=== PATIENT | male | born 1970 | race Caucasian/White ===

== ENCOUNTER 2017-11-15 12:14 | Emergency (ER) | payer BC ==
[~2017-11-15] VITALS: Ht 177.8 cm; Wt 72.7 kg
[~2017-11-15 12:14] MED LIST: FAMO-128 PO; HYDR-569 PO
[2017-11-15 12:39] VITALS: BP 132/86
[2017-11-15] MEDS ORDERED: CLIN300C85 PO (13:05)
[2017-11-15] MEDS ORDERED: NYST30CR2 TP (13:05)
== END 2017-11-15 13:18 | disposition home or self-care (01) ==
LOC: ER 12:15
DX: L03.116 Cellulitis of left lower limb (principal); F17.200 Nicotine dependence, unspecified, uncomplicated; F12.90 Cannabis use, unspecified, uncomplicated; Z79.2 Long term (current) use of antibiotics; Z79.899 Other long term (current) drug therapy
CPT/HCPCS: 99283

== ENCOUNTER 2018-05-27 09:08 | Emergency (ER) | payer BC ==
[~2018-05-27] VITALS: Ht 180.3 cm; Wt 75.8 kg
[~2018-05-27 09:08] MED LIST changes: +CLIN-96 PO; +HYDR-4383 PO; -HYDR-569 PO; +NYST30CR2 TP
[2018-05-27 09:17] VITALS: BP 152/93
== END 2018-05-27 09:46 | disposition home or self-care (01) ==
LOC: ER 09:09
DX: R07.89 Other chest pain (principal); F12.90 Cannabis use, unspecified, uncomplicated; F17.200 Nicotine dependence, unspecified, uncomplicated; Z79.899 Other long term (current) drug therapy; X58.XXXA Exposure to other specified factors, initial encounter; Y93.89 Activity, other specified; Y92.89 Other specified places as the place of occurrence of the external cause; Y99.8 Other external cause status
CPT/HCPCS: 93005; 99283

== ENCOUNTER 2018-09-04 12:39 | Emergency (ER) | payer BC ==
[~2018-09-04] VITALS: Ht 180.3 cm; Wt 74.0 kg
[2018-09-04 12:54] VITALS: BP 134/84
== END 2018-09-04 13:47 | disposition left against medical advice (07) ==
LOC: ER 12:40
DX: M25.531 Pain in right wrist (principal); F12.90 Cannabis use, unspecified, uncomplicated
CPT/HCPCS: 99281

== ENCOUNTER 2018-09-08 19:35 | Emergency (ER) | payer BC ==
[~2018-09-08] VITALS: Ht 180.3 cm; Wt 74.7 kg
[2018-09-08 19:47] VITALS: BP 128/81
--- NOTE | 2018-09-08 20:27 | NUR ---
PT REPORTS HAVING "A LOT OF GAS" TODAY. REPORTS HE USUALLY TAKES A SMALL WHIT PILL AND IT "TAKES CARE OF IT IN 30 MINUTES". DOES NOT KNOW THE NAME OF THE PILL AND NO LONGER HAS PERSCRPTION FOR IT. NO TNAUSEA. GOOD FLUID AND SOLIDS INTAKE AND NORMAL BM X2 TODAY. REPORTS SCANT AMT OF GAS AND USUALLY HAS A LOT OF GAS. NO SIGNIFICANT BELCHING NOTED. PAIN IS 3 OUT OF 10 TO MID AND LOWER ABDOMEN, NON RADIATING.
--- NOTE | 2018-09-08 20:51 | NUR ---
PT WALKING OUT OF HIS ROOM AND PAST NURSES STATION, ASKED WHERE HE WA GOING AND HE REPORTS "IM LEAVING...IM NOT WAITING" AND CONTINUED WALKING TOWARDS EXIT ADMITTING AREA. TOLD WE CAN TRY TO GET THE DOCTOR AND AT LEAST GET SOME MEDICATION STARTED AND HE CONTINUED WALKING AWAY. KARLA PABLO NOTIFIED. PT AMBULATING WITH STEADY GAIT.
--- NOTE | 2018-09-08 21:00 | NUR ---
DR OWENS INFORMED OF LWOBS
== END 2018-09-08 20:45 | disposition left against medical advice (07) ==
LOC: ER 19:36
DX: R10.9 Unspecified abdominal pain (principal); Z53.21 Procedure and treatment not carried out due to patient leaving prior to being seen by health care provider